=== PATIENT | male | born 1980 | race Asian ===

== ENCOUNTER 2017-01-11 00:35 | Day surgery (SDC) | payer OTHER ==
[~2017-01-11] VITALS: Ht 165.1 cm; Wt 104.5 kg
[2017-01-11] VITALS (11 sets, daily range): BP systolic 107–146; BP diastolic 64–86; PULSE 53–85; RESP 13–20; O2SAT 95–100
[~2017-01-11 00:35] MED LIST: AMIO200T PO; AMLO10TA3 PO; CARV25TA2 PO; INSU100V27 SQ; KEN1O TOP; LOSA25TA21 PO; METF1000 PO; NPH,100V10 SUBQ; OMEP20CA11 PO; PIOG15TA21 PO; RIVA20TA PO; ROSU40TA PO
[2017-01-11] MEDS ORDERED: 0.9% Sodium Chloride 1,000 ML IV SCH (06:00)
[2017-01-11] MEDS ORDERED: Methohexital 10 mg/mL 50 mL Inj IV ONE (06:00)
[2017-01-11] MEDS ORDERED: Methohexital 10 mg/mL 50 mL Inj ONE (07:49)
[2017-01-11 07:54] LABS: BASOPHILS % (AUTO) 0 % (0-3); EOSINOPHILS % (AUTO) 4.7 % (0-5); MONOCYTES % (AUTO) 8.1 % (4-12); Mean Corpuscular Hemoglobin 28.6 pg (27.0-35.0); NEUTROPHILS % (AUTO) 60.8 % (40-74); Platelet Count 247 bil/L (150-400)
[2017-01-11] MEDS ORDERED: Flumazenil 0.1 mg/mL 5 mL Inj IV ONE (07:59)
[2017-01-11] MEDS ORDERED: Atropine 1 mg/10 mL (Code) Syringe ONE (07:59)
[2017-01-11 08:09] LABS: INR 1.16 ratio
--- NOTE | 2017-01-11 09:19 | PROCED ---
[address] [address] PROCEDURE NOTE PATIENT: SAGRARIO ARMSTRONG : 1980 MR#: [id number] ADMIT: 01/11/2017 JOB ID: [id number] DATE OF SERVICE: 01/11/2017 PREOPERATIVE DIAGNOSIS(ES): Atrial fibrillation. POSTOPERATIVE DIAGNOSIS(ES): Sinus rhythm. PROCEDURE PERFORMED: Direct current cardioversion. SURGEON: Zaid Mena MD, Electrophysiology Attending. SEDATION: 1 mg of Versed and 40 mg of Brevital were utilized for appropriate level of sedation. INDICATION: The patient is a pleasant, 36-year-old man, with recurrent atrial fibrillation requiring multiple ablations. He comes in for a cardioversion after discussion of risks and benefits, and after confirmation of adequate anticoagulation. PROCEDURAL DESCRIPTION: Following informed consent, the patient was taken to the procedure suite in a fasting state where defibrillator patches were placed in the anterior and posterior positions. After adequate sedation, a 200 joule biphasic synchronized shock was used to convert him to sinus rhythm. He will be allowed to recover and discharged home for close followup. COMPLICATIONS: None. ESTIMATED BLOOD LOSS: None. IMPRESSION: Successful direct current cardioversion. PLAN: 1. Recovery and discharge from the [facility]. 2. Continue current medication regimen including amiodarone and anticoagulation. 3. Follow up with David Matias in the clinic in 3-4 weeks. ATTENDING STATEMENT: Zaid Mena MD, electrophysiology attending, was present for and supervised/performed all aspects of this procedure.
--- NOTE | 2017-01-11 10:15 | NUR ---
Cardioversion Pt arrived to [facility] at 0715. IV started and admission completed. Labs/vitals WNL. Dynamometer Tester and RT in room at 0855 to perform cardioversion. Completed and successful by 0900. Pt recovered w/out difficulty. Discharge instructions discussed and pt accompanied to cafeteria, where working, who will be transporting him home. Follow-up appt scheduled for 02/02.
--- NOTE | 2017-01-11 12:19 | NUR ---
0845 called to [facility] for cardioversion. pt has ETCO2 monitor in place, o2 sats are 99% he was medicated by RN and succesfully cardioverted at 200 joules by he had no difficulty maintaining his O2 sats or his airway, and he was breathing with out difficulty throughout. he was waking up by about 915
== END 2017-01-11 23:59 | disposition home or self-care (01) ==
LOC: SOUO 00:35
PROVIDERS: ATTEND Internal Medicine Cardiovascular Disease
DX: I48.1 Persistent atrial fibrillation (principal); G25.81 Restless legs syndrome; I48.92 Unspecified atrial flutter; I13.10 Hypertensive heart and chronic kidney disease without heart failure, with stage 1 through stage 4 chronic kidney disease, or unspecified chronic kidney disease; E10.319 Type 1 diabetes mellitus with unspecified diabetic retinopathy without macular edema; E10.22 Type 1 diabetes mellitus with diabetic chronic kidney disease; N18.2 Chronic kidney disease, stage 2 (mild); G47.33 Obstructive sleep apnea (adult) (pediatric); E78.5 Hyperlipidemia, unspecified; Z79.01 Long term (current) use of anticoagulants; Z79.899 Other long term (current) drug therapy; Z98.890 Other specified postprocedural states
CPT/HCPCS: 36415; 80048; 85025; 85610; 92960; 93005; 94799; 99152; J2250; J7030

== ENCOUNTER → 2017-04-14 | Day surgery (SDC) | payer OTHER ==
[~2017-04-14] MED LIST changes: -KEN1O TOP; +KEN25CR EXT
--- NOTE | 2017-04-14 08:29 | NUR ---
cardioversion cancelled pt in sinus rhythm upon arrival
== END | disposition home or self-care (01) ==
LOC: SOUO 01:35
PROVIDERS: ATTEND Internal Medicine Cardiovascular Disease
DX: I48.1 Persistent atrial fibrillation (principal); Z53.8 Procedure and treatment not carried out for other reasons; Z98.890 Other specified postprocedural states; Z79.899 Other long term (current) drug therapy; Z79.01 Long term (current) use of anticoagulants